=== PATIENT | male | born 1965 | race Caucasian/White ===

== ENCOUNTER 2019-10-21 08:46 | Inpatient (IN) ==
[2019-10-21] MEDS ORDERED: Lidocaine -MPF 2% 2 ML VIAL ONE (09:18)
[2019-10-21] MEDS ORDERED: *HR* Rocuronium Bromide 50 MG/5 ML VIAL ONE ×7 (09:18→14:19)
[2019-10-21] MEDS ORDERED: *HR* PHENYLEPHRINE 1,000 MCG/10 ML SYRINGE IVP ONE (09:18)
[2019-10-21] MEDS ORDERED: Lidocaine HCL 4 ML Topical Solution (Laryng-O-Jet Kit Sterile Pak) TP ONE (09:18)
[2019-10-21] MEDS ORDERED: Dexamethasone 4 MG/ML VIAL ONE (09:18)
[2019-10-21] MEDS ORDERED: Ondansetron 4 MG/2 ML VIAL ONE (09:18)
[2019-10-21] MEDS ORDERED: *HR* Propofol 200 MG/20 ML VIAL IVP ONE ×2 (09:19→13:27)
[2019-10-21] MEDS ORDERED: *HR* FentaNYL (PF) 100 MCG/2 ML VIAL ONE ×3 (09:21→11:06)
[2019-10-21] MEDS ORDERED: *HR* Midazolam HCl 2 MG/2 ML VIAL ONE (09:22)
[2019-10-21] MEDS ORDERED: Albuterol 2.5 MG/3 ML NEBULIZER IH PRN (09:26)
[2019-10-21] MEDS ORDERED: CeFAZolin Syr 2,000MG/20 ML 2,000 MG/20 ML SYRINGE IVPB ONE (09:26)
[2019-10-21] MEDS ORDERED: Heparin 1,000 UNITS/500 mL 1,000 ML ONE (09:26)
[2019-10-21] MEDS ORDERED: Ringers Solution, Lactated 1,000 ML IVC SCH (09:30)
[2019-10-21] MEDS ORDERED: Famotidine 20 MG/2 ML VIAL IVP ONE ×2 (09:39→09:41)
[2019-10-21] MEDS ORDERED: Acetaminophen IV 1,000 MG/100 ML INFUS..BTL IVPB ONE (09:39)
[2019-10-21] MEDS ORDERED: *HR* Promethazine 25 MG/ML VIAL IVP PRN (09:41)
[2019-10-21] MEDS ORDERED: *HR* Labetalol 20 MG/4 ML SYRINGE IVP PRN (09:41)
[2019-10-21] MEDS ORDERED: Ondansetron 4 MG/2 ML VIAL IVP ONE (09:41)
[2019-10-21] MEDS ORDERED: *HR* FentaNYL (PF) 100 MCG/2 ML VIAL IVP PRN (09:41)
[2019-10-21 09:50] LABS: INR 1.1; Prothrombin Time 12.2 Seconds (9.4-12.1)
[2019-10-21] MEDS ORDERED: cefOXitin 1,000 MG, Sodium Chloride IRRigation 1,000 ML IR ONE (10:30)
[2019-10-21] MEDS ORDERED: *HR* HYDROMORPHONE 2 MG/ML VIAL ONE (11:36)
[2019-10-21] MEDS ORDERED: Tranexamic Acid 1,000 MG/10 ML VIAL ONE (13:16)
[2019-10-21] MEDS ORDERED: Albumin Human 5% 25.0 GM/500 ML VIAL ONE (13:51)
[2019-10-21 14:25] LABS: ABG Base Excess -4 mEq/L (-2 to 3); ABG Chloride 105 mEq/L (98-107); ABG Glucose 144 mg/dL (60-95); ABG HCO3 24 mEq/L (21-27); ABG Ionized Calcium 1.18 mmol/L (1.15-1.35); ABG Oxygen Saturation 99 % (95-98); ABG PCO2 50 mmHg (35-45); ABG PH 7.28 pH Units (7.32-7.45); ABG PO2 132 mmHg (85-104); ABG TCO2 25 mEq/L (20-26)
[2019-10-21] MEDS ORDERED: Naloxone 0.4 MG/ML INJ IVP PRN (16:15)
[2019-10-21] MEDS: levETIRAcetam 1,000 MG in 0.9 % Sodium Chloride 100 ML IVPB SCH (17:20)
[2019-10-21] MEDS: 0.9 % Sodium Chloride 1,000 ML IVC SCH (17:24)
[2019-10-21] MEDS: Morphine PCA 30 MG/ 30 ML 30 ML PCA.VIAL IVC SCH (17:35)
[2019-10-21] MEDS: Ipratropium/Albuterol Neb 3 ML IH SCH ×3 (18:25→23:31)
[2019-10-21] MEDS: *HR* Heparin 5,000 UNIT/ML VIAL SQ SCH (22:11)
[2019-10-22] MEDS: 0.9 % Sodium Chloride 1,000 ML IVC SCH ×3 (00:51→16:24)
[2019-10-22] MEDS: Ipratropium/Albuterol Neb 3 ML IH SCH ×6 (03:15→23:39)
[2019-10-22] MEDS: levETIRAcetam 1,000 MG in 0.9 % Sodium Chloride 100 ML IVPB SCH ×2 (03:49→16:21)
[2019-10-22 04:02] LABS: Hematocrit 35.3 % (37.5-50.1); Hemoglobin 11.2 g/dL (12.9-16.9); Immature Platelets 4.1 % (1.1-6.1); Mean Corpuscular HGB Conc 31.7 g/dL (31.6-35.5); Mean Corpuscular Hemoglobin 28.1 pg (28.0-33.3); Mean Corpuscular Volume 88.7 fL (83.0-100.0); Mean Platelet Volume 9.7 fL (9.4-12.4); Red Blood Count 3.98 M/mcL (4.19-5.50); White Blood Count 11.9 K/mcL (4.3-11.1)
[2019-10-22 04:08] LABS: % Iron Saturation 21 % (20-55); BUN/Creatinine Ratio 21 (6-26); Blood Urea Nitrogen 28 mg/dL (6-20); Calcium 8.1 mg/dL (8.6-10.3); Carbon Dioxide 22 mEq/L (23-29); Chloride 109 mEq/L (98-107); Glucose 139 mg/dL (70-105); Iron 64 mcg/dL (65-175); Magnesium 1.9 mg/dL (1.6-2.6); Osmolality,Calculated 296 (280-300); Potassium 5.2 mEq/L (3.5-5.1); Sodium 139 mEq/L (136-145); Transferrin 220 mg/dL (203-362); eGFR For African Americans > 60 (> 60); eGFR For Non-African Americans 54 (> 60)
[2019-10-22] MEDS: *HR* Heparin 5,000 UNIT/ML VIAL SQ SCH ×3 (05:57→22:03)
[2019-10-22] MEDS: Morphine PCA 30 MG/ 30 ML 30 ML PCA.VIAL IVC SCH ×2 (07:02→15:56)
[2019-10-22] MEDS: Pantoprazole 40 MG VIAL IVP SCH (08:21)
[2019-10-23] MEDS: 0.9 % Sodium Chloride 1,000 ML IVC SCH ×3 (00:27→16:10)
[2019-10-23] MEDS: Morphine PCA 30 MG/ 30 ML 30 ML PCA.VIAL IVC SCH ×2 (03:03→13:44)
[2019-10-23 03:39] LABS: Red Blood Count 3.25 M/mcL (4.19-5.50)
[2019-10-23 03:41] LABS: Hematocrit 30.4 % (37.5-50.1); Hemoglobin 9.2 g/dL (12.9-16.9); Mean Corpuscular HGB Conc 30.3 g/dL (31.6-35.5); Mean Corpuscular Hemoglobin 28.3 pg (28.0-33.3); Mean Corpuscular Volume 93.5 fL (83.0-100.0); Mean Platelet Volume 10.9 fL (9.4-12.4); Red Cell Distribution Width 16.5 % (11.5-14.5); White Blood Count 14.8 K/mcL (4.3-11.1)
[2019-10-23] MEDS: levETIRAcetam 1,000 MG in 0.9 % Sodium Chloride 100 ML IVPB SCH ×2 (03:52→16:44)
[2019-10-23 04:01] LABS: Calcium 8.2 mg/dL (8.6-10.3); Magnesium 2.3 mg/dL (1.6-2.6); Phosphorous 3.3 mg/dL (2.7-4.5)
[2019-10-23] MEDS: Ipratropium/Albuterol Neb 3 ML IH SCH ×6 (04:06→23:38)
[2019-10-23] MEDS: *HR* Heparin 5,000 UNIT/ML VIAL SQ SCH ×3 (05:54→20:44)
[2019-10-23] MEDS: Pantoprazole 40 MG VIAL IVP SCH (08:09)
[2019-10-24] MEDS: Morphine PCA 30 MG/ 30 ML 30 ML PCA.VIAL IVC SCH ×3 (00:12→20:27)
[2019-10-24] MEDS: 0.9 % Sodium Chloride 1,000 ML IVC SCH ×4 (00:23→22:19)
[2019-10-24] MEDS: levETIRAcetam 1,000 MG in 0.9 % Sodium Chloride 100 ML IVPB SCH ×2 (03:45→16:04)
[2019-10-24] MEDS: Ipratropium/Albuterol Neb 3 ML IH SCH ×6 (03:50→23:58)
[2019-10-24 04:01] LABS: Hematocrit 26.1 % (37.5-50.1); Hemoglobin 8.3 g/dL (12.9-16.9); Immature Platelets 3.5 % (1.1-6.1); Mean Corpuscular HGB Conc 31.8 g/dL (31.6-35.5); Mean Corpuscular Hemoglobin 28.5 pg (28.0-33.3); Mean Corpuscular Volume 89.7 fL (83.0-100.0); Red Blood Count 2.91 M/mcL (4.19-5.50); Red Cell Distribution Width 16.9 % (11.5-14.5); White Blood Count 10.7 K/mcL (4.3-11.1)
[2019-10-24] MEDS: *HR* Heparin 5,000 UNIT/ML VIAL SQ SCH ×3 (04:14→22:20)
[2019-10-24 04:20] LABS: BUN/Creatinine Ratio 29 (6-26); Blood Urea Nitrogen 35 mg/dL (6-20); Carbon Dioxide 21 mEq/L (23-29); Chloride 114 mEq/L (98-107); Glucose 121 mg/dL (70-105); Magnesium 2.4 mg/dL (1.6-2.6); Osmolality,Calculated 303 (280-300); Phosphorous 1.9 mg/dL (2.7-4.5); Potassium 4.2 mEq/L (3.5-5.1); Sodium 142 mEq/L (136-145); eGFR For African Americans > 60 (> 60); eGFR For Non-African Americans > 60 (> 60)
[2019-10-24] MEDS: Pantoprazole 40 MG VIAL IVP SCH (08:36)
[2019-10-24] MEDS ORDERED: Furosemide 40 MG/4 ML VIAL IVP ONE (09:39)
[2019-10-24] MEDS ORDERED: 0.9 % Sodium Chloride 250 ML ONE (10:29)
[2019-10-24] MEDS ORDERED: Furosemide 40 MG/4 ML VIAL ONE (11:21)
[2019-10-25] MEDS: Ipratropium/Albuterol Neb 3 ML IH SCH ×6 (03:55→23:38)
[2019-10-25] MEDS: levETIRAcetam 1,000 MG in 0.9 % Sodium Chloride 100 ML IVPB SCH ×2 (05:10→16:55)
[2019-10-25] MEDS: *HR* Heparin 5,000 UNIT/ML VIAL SQ SCH ×3 (05:10→21:13)
[2019-10-25 05:49] LABS: Red Cell Distribution Width 16.9 % (11.5-14.5)
[2019-10-25 05:50] LABS: Hematocrit 26.6 % (37.5-50.1); Hemoglobin 8.7 g/dL (12.9-16.9); Immature Platelets 3.6 % (1.1-6.1); Mean Corpuscular HGB Conc 32.7 g/dL (31.6-35.5); Mean Corpuscular Hemoglobin 29.1 pg (28.0-33.3); Mean Platelet Volume 10.3 fL (9.4-12.4); Red Blood Count 2.99 M/mcL (4.19-5.50); White Blood Count 8.4 K/mcL (4.3-11.1)
[2019-10-25] MEDS: Morphine PCA 30 MG/ 30 ML 30 ML PCA.VIAL IVC SCH ×3 (06:03→22:03)
[2019-10-25 06:13] LABS: BUN/Creatinine Ratio 27 (6-26); Blood Urea Nitrogen 29 mg/dL (6-20); Calcium 8.4 mg/dL (8.6-10.3); Carbon Dioxide 23 mEq/L (23-29); Chloride 113 mEq/L (98-107); Glucose 123 mg/dL (70-105); Magnesium 2.4 mg/dL (1.6-2.6); Osmolality,Calculated 311 (280-300); Phosphorous 2.2 mg/dL (2.7-4.5); Potassium 3.9 mEq/L (3.5-5.1); Sodium 147 mEq/L (136-145); eGFR For African Americans > 60 (> 60); eGFR For Non-African Americans > 60 (> 60)
[2019-10-25] MEDS: 0.9 % Sodium Chloride 1,000 ML IVC SCH (07:53)
[2019-10-25] MEDS: Pantoprazole 40 MG VIAL IVP SCH (07:53)
[2019-10-25] MEDS ORDERED: 0.9 % Sodium Chloride 1,000 ML IVC SCH (08:27)
[2019-10-25] MEDS: Docusate Oral Soln 100 MG/10 ML UDC GTUBE SCH ×2 (09:24→21:13)
[2019-10-25] MEDS: Acetylcysteine 10% 2 ML INHSOL IH SCH ×4 (11:36→23:39)
[2019-10-25] MEDS ORDERED: Amiodarone Premix 150 MG/100 ML BAG IVPB ONE (23:50)
[2019-10-26] MEDS ORDERED: Amiodarone Premix 360 MG/200 ML BAG IVC ONE
[2019-10-26] MEDS: levETIRAcetam 1,000 MG in 0.9 % Sodium Chloride 100 ML IVPB SCH ×2 (04:00→15:42)
[2019-10-26] MEDS: Ipratropium/Albuterol Neb 3 ML IH SCH ×6 (04:40→23:37)
[2019-10-26] MEDS: Acetylcysteine 10% 2 ML INHSOL IH SCH ×6 (04:41→23:37)
[2019-10-26 04:50] LABS: Hematocrit 27.6 % (37.5-50.1); Hemoglobin 8.5 g/dL (12.9-16.9); Immature Platelets 3.3 % (1.1-6.1); Mean Corpuscular HGB Conc 30.8 g/dL (31.6-35.5); Mean Corpuscular Hemoglobin 28.8 pg (28.0-33.3); Mean Corpuscular Volume 93.6 fL (83.0-100.0); Mean Platelet Volume 10.9 fL (9.4-12.4); Red Blood Count 2.95 M/mcL (4.19-5.50); Red Cell Distribution Width 16.8 % (11.5-14.5); White Blood Count 8.5 K/mcL (4.3-11.1)
[2019-10-26 05:10] LABS: BUN/Creatinine Ratio 26 (6-26); Blood Urea Nitrogen 28 mg/dL (6-20); Calcium 8.5 mg/dL (8.6-10.3); Carbon Dioxide 22 mEq/L (23-29); Chloride 115 mEq/L (98-107); Glucose 127 mg/dL (70-105); Magnesium 2.5 mg/dL (1.6-2.6); Osmolality,Calculated 309 (280-300); Phosphorous 2.6 mg/dL (2.7-4.5); Sodium 146 mEq/L (136-145); eGFR For African Americans > 60 (> 60); eGFR For Non-African Americans > 60 (> 60)
[2019-10-26] MEDS: *HR* Heparin 5,000 UNIT/ML VIAL SQ SCH ×3 (06:11→21:45)
[2019-10-26] MEDS: Amiodarone Premix 360 MG/200 ML BAG IVC SCH ×2 (06:11→18:16)
[2019-10-26] MEDS: Morphine PCA 30 MG/ 30 ML 30 ML PCA.VIAL IVC SCH (08:30)
[2019-10-26] MEDS: Docusate Oral Soln 100 MG/10 ML UDC GTUBE SCH ×2 (09:42→21:45)
[2019-10-26] MEDS: D5% in Water 500 ML IVC SCH (09:43)
[2019-10-26] MEDS: Pantoprazole 40 MG VIAL IVP SCH (09:43)
[2019-10-26] MEDS: Morphine PCA 30 MG/ 30 ML 30 ML PCA.VIAL IVC PRN (22:28)
[2019-10-27 03:35] LABS: Mean Corpuscular Hemoglobin 28.3 pg (28.0-33.3)
[2019-10-27 03:37] LABS: Hematocrit 27.3 % (37.5-50.1); Hemoglobin 8.7 g/dL (12.9-16.9); Immature Platelets 5.2 % (1.1-6.1); Mean Corpuscular HGB Conc 31.9 g/dL (31.6-35.5); Mean Corpuscular Volume 88.9 fL (83.0-100.0); Mean Platelet Volume 11.1 fL (9.4-12.4); Red Blood Count 3.07 M/mcL (4.19-5.50); White Blood Count 8.5 K/mcL (4.3-11.1)
[2019-10-27] MEDS: Ipratropium/Albuterol Neb 3 ML IH SCH ×5 (03:48→20:06)
[2019-10-27] MEDS: Acetylcysteine 10% 2 ML INHSOL IH SCH ×5 (03:48→20:06)
[2019-10-27 03:57] LABS: BUN/Creatinine Ratio 25 (6-26); Blood Urea Nitrogen 27 mg/dL (6-20); Calcium 8.4 mg/dL (8.6-10.3); Carbon Dioxide 23 mEq/L (23-29); Chloride 115 mEq/L (98-107); Glucose 133 mg/dL (70-105); Magnesium 2.4 mg/dL (1.6-2.6); Osmolality,Calculated 311 (280-300); Phosphorous 3.4 mg/dL (2.7-4.5); Potassium 3.7 mEq/L (3.5-5.1); Sodium 147 mEq/L (136-145); eGFR For African Americans > 60 (> 60); eGFR For Non-African Americans > 60 (> 60)
[2019-10-27] MEDS: levETIRAcetam 1,000 MG in 0.9 % Sodium Chloride 100 ML IVPB SCH ×2 (05:00→15:57)
[2019-10-27] MEDS: *HR* Heparin 5,000 UNIT/ML VIAL SQ SCH ×3 (05:00→20:57)
[2019-10-27] MEDS: D5% in Water 500 ML IVC SCH ×4 (05:06→17:55)
[2019-10-27] MEDS: Amiodarone Premix 360 MG/200 ML BAG IVC SCH ×2 (06:15→17:55)
[2019-10-27] MEDS: Docusate Oral Soln 100 MG/10 ML UDC GTUBE SCH ×2 (08:43→20:57)
[2019-10-27] MEDS: Pantoprazole 40 MG VIAL IVP SCH (08:43)
[2019-10-27] MEDS: Morphine PCA 30 MG/ 30 ML 30 ML PCA.VIAL IVC PRN (11:32)
[2019-10-28] MEDS: Ipratropium/Albuterol Neb 3 ML IH SCH ×6 (00:01→20:18)
[2019-10-28] MEDS: Acetylcysteine 10% 2 ML INHSOL IH SCH ×3 (00:01→07:28)
[2019-10-28] MEDS: Morphine PCA 30 MG/ 30 ML 30 ML PCA.VIAL IVC PRN ×2 (00:12→09:44)
[2019-10-28 04:45] LABS: Mean Corpuscular Volume 92.1 fL (83.0-100.0)
[2019-10-28 04:47] LABS: Hematocrit 28.1 % (37.5-50.1); Hemoglobin 8.5 g/dL (12.9-16.9); Immature Platelets 5.4 % (1.1-6.1); Mean Corpuscular HGB Conc 30.2 g/dL (31.6-35.5); Mean Corpuscular Hemoglobin 27.9 pg (28.0-33.3); Red Blood Count 3.05 M/mcL (4.19-5.50); White Blood Count 7.5 K/mcL (4.3-11.1)
[2019-10-28] MEDS: levETIRAcetam 1,000 MG in 0.9 % Sodium Chloride 100 ML IVPB SCH ×2 (05:22→16:56)
[2019-10-28] MEDS: *HR* Heparin 5,000 UNIT/ML VIAL SQ SCH ×3 (05:22→21:15)
[2019-10-28 05:24] LABS: BUN/Creatinine Ratio 28 (6-26); Blood Urea Nitrogen 31 mg/dL (6-20); Calcium 8.4 mg/dL (8.6-10.3); Carbon Dioxide 26 mEq/L (23-29); Chloride 109 mEq/L (98-107); Glucose 139 mg/dL (70-105); Magnesium 2.7 mg/dL (1.6-2.6); Osmolality,Calculated 309 (280-300); Phosphorous 3.9 mg/dL (2.7-4.5); Potassium 3.9 mEq/L (3.5-5.1); Sodium 145 mEq/L (136-145); eGFR For African Americans > 60 (> 60); eGFR For Non-African Americans > 60 (> 60)
[2019-10-28] MEDS: D5% in Water 500 ML IVC SCH ×2 (05:27→16:55)
[2019-10-28] MEDS: Amiodarone Premix 360 MG/200 ML BAG IVC SCH (07:48)
[2019-10-28] MEDS: Pantoprazole 40 MG VIAL IVP SCH (08:26)
[2019-10-28] MEDS ORDERED: *HR* OxyCODONE Oral Soln 5 MG/5 ML UD.LIQ GTUBE PRN (10:17)
[2019-10-28] MEDS: Docusate Oral Soln 100 MG/10 ML UDC GTUBE SCH ×2 (11:25→21:14)
[2019-10-28] MEDS ORDERED: Naloxone 0.4 MG/ML INJ IVP PRN (15:13)
[2019-10-28] MEDS: *HR* OxyCODONE Oral Soln 5 MG/5 ML UD.LIQ GTUBE PRN (17:51)
[2019-10-28] MEDS ORDERED: *HR* HYDROmorphone 2 MG/ML SYRINGE IVP ONE (22:56)
[2019-10-28 23:38] LABS: Hematocrit 28.3 % (37.5-50.1); Hemoglobin 9.1 g/dL (12.9-16.9); Immature Platelets 7.6 % (1.1-6.1); Mean Corpuscular HGB Conc 32.2 g/dL (31.6-35.5); Mean Corpuscular Hemoglobin 28.7 pg (28.0-33.3); Mean Corpuscular Volume 89.3 fL (83.0-100.0); Mean Platelet Volume 11.7 fL (9.4-12.4); Red Blood Count 3.17 M/mcL (4.19-5.50); Red Cell Distribution Width 16.8 % (11.5-14.5); White Blood Count 8.8 K/mcL (4.3-11.1)
[2019-10-28 23:54] LABS: BUN/Creatinine Ratio 26 (6-26); Blood Urea Nitrogen 31 mg/dL (6-20); Calcium 8.4 mg/dL (8.6-10.3); Carbon Dioxide 25 mEq/L (23-29); Chloride 108 mEq/L (98-107); Glucose 120 mg/dL (70-105); Osmolality,Calculated 300 (280-300); Potassium 4.1 mEq/L (3.5-5.1); Sodium 141 mEq/L (136-145); eGFR For African Americans > 60 (> 60); eGFR For Non-African Americans > 60 (> 60)
[2019-10-29] MEDS: Ipratropium/Albuterol Neb 3 ML IH SCH ×7 (00:20→23:25)
[2019-10-29] MEDS: *HR* OxyCODONE Oral Soln 5 MG/5 ML UD.LIQ GTUBE PRN ×3 (00:26→20:14)
[2019-10-29] MEDS: D5% in Water 500 ML IVC SCH ×2 (02:45→12:14)
[2019-10-29] MEDS: *HR* Heparin 5,000 UNIT/ML VIAL SQ SCH ×3 (05:25→19:42)
[2019-10-29] MEDS: levETIRAcetam 1,000 MG in 0.9 % Sodium Chloride 100 ML IVPB SCH ×2 (05:26→15:41)
[2019-10-29] MEDS: *HR* Amiodarone 200 MG TABLET GTUBE SCH (07:50)
[2019-10-29] MEDS: Docusate Oral Soln 100 MG/10 ML UDC GTUBE SCH ×2 (07:51→19:41)
[2019-10-29] MEDS: Pantoprazole 40 MG VIAL IVP SCH (07:51)
[2019-10-29] MEDS ORDERED: *HR* Amiodarone 200 MG TABLET GTUBE SCH (09:00)
[2019-10-29] MEDS ORDERED: Perflutren Lipid Microsphere 1.3 ML in 0.9 % Sodium Chloride 8.7 ML IVP ONE (10:50)
[2019-10-29] MEDS ORDERED: Furosemide 20 MG/2 ML VIAL IVP ONE (11:47)
[2019-10-29] MEDS ORDERED: Vancomycin 1,750 MG in 0.9 % Sodium Chloride 250 ML IVPB SCH (17:00)
[2019-10-29] MEDS: Piperacillin/Tazobactam 3.375 GM in 0.9 % Sodium Chloride Mini Bag 100 ML IVPB SCH ×2 (18:02→23:10)
[2019-10-30] MEDS: levETIRAcetam 1,000 MG in 0.9 % Sodium Chloride 100 ML IVPB SCH ×2 (03:43→17:42)
[2019-10-30] MEDS: Ipratropium/Albuterol Neb 3 ML IH SCH ×6 (04:25→23:14)
[2019-10-30 04:27] LABS: Hematocrit 25.5 % (37.5-50.1); Hemoglobin 7.9 g/dL (12.9-16.9); Immature Platelets 7.3 % (1.1-6.1); Mean Corpuscular Hemoglobin 27.8 pg (28.0-33.3); Mean Corpuscular Volume 89.8 fL (83.0-100.0); Mean Platelet Volume 11.7 fL (9.4-12.4); Red Blood Count 2.84 M/mcL (4.19-5.50); Red Cell Distribution Width 17.1 % (11.5-14.5); White Blood Count 7.9 K/mcL (4.3-11.1)
[2019-10-30 04:29] LABS: BUN/Creatinine Ratio 22 (6-26); Blood Urea Nitrogen 27 mg/dL (6-20); Calcium 7.9 mg/dL (8.6-10.3); Carbon Dioxide 25 mEq/L (23-29); Chloride 106 mEq/L (98-107); Glucose 138 mg/dL (70-105); Osmolality,Calculated 299 (280-300); Potassium 4.3 mEq/L (3.5-5.1); Sodium 141 mEq/L (136-145); eGFR For African Americans > 60 (> 60); eGFR For Non-African Americans > 60 (> 60)
[2019-10-30] MEDS: *HR* Heparin 5,000 UNIT/ML VIAL SQ SCH ×3 (05:28→20:15)
[2019-10-30] MEDS: D5% in Water 500 ML IVC SCH ×2 (07:49→12:30)
[2019-10-30] MEDS ORDERED: Aminoglycoside Consult 1 EACH MC ONE (08:18)
[2019-10-30] MEDS: *HR* Amiodarone 200 MG TABLET GTUBE SCH (08:31)
[2019-10-30] MEDS: Metoprolol XL (24 HR) Succ 50 MG TAB.ER.24H PO SCH (08:31)
[2019-10-30] MEDS: Pantoprazole 40 MG VIAL IVP SCH (08:31)
[2019-10-30] MEDS: Piperacillin/Tazobactam 3.375 GM in 0.9 % Sodium Chloride Mini Bag 100 ML IVPB SCH ×2 (08:31→16:13)
[2019-10-30] MEDS: aMILoride 5 MG TABLET PO SCH (08:31)
[2019-10-30] MEDS: Docusate Oral Soln 100 MG/10 ML UDC GTUBE SCH ×2 (08:31→22:15)
[2019-10-30] MEDS ORDERED: Furosemide 20 MG TABLET PO ONE (08:45)
[2019-10-30] MEDS: *HR* OxyCODONE Oral Soln 5 MG/5 ML UD.LIQ GTUBE PRN ×3 (12:45→22:15)
[2019-10-31] MEDS: Piperacillin/Tazobactam 3.375 GM in 0.9 % Sodium Chloride Mini Bag 100 ML IVPB SCH ×4 (00:12→23:43)
[2019-10-31] MEDS: Ipratropium/Albuterol Neb 3 ML IH SCH ×6 (03:48→23:40)
[2019-10-31] MEDS: *HR* OxyCODONE Oral Soln 5 MG/5 ML UD.LIQ GTUBE PRN ×4 (04:29→21:44)
[2019-10-31] MEDS: levETIRAcetam 1,000 MG in 0.9 % Sodium Chloride 100 ML IVPB SCH ×2 (04:29→16:01)
[2019-10-31] MEDS: *HR* Heparin 5,000 UNIT/ML VIAL SQ SCH (05:00)
[2019-10-31 05:13] LABS: Hematocrit 26.8 % (37.5-50.1); Hemoglobin 8.4 g/dL (12.9-16.9); Mean Corpuscular HGB Conc 31.3 g/dL (31.6-35.5); Mean Corpuscular Hemoglobin 28.1 pg (28.0-33.3); Mean Corpuscular Volume 89.6 fL (83.0-100.0); Mean Platelet Volume 10.7 fL (9.4-12.4); Red Blood Count 2.99 M/mcL (4.19-5.50); Red Cell Distribution Width 16.8 % (11.5-14.5); White Blood Count 9.8 K/mcL (4.3-11.1)
[2019-10-31 05:30] LABS: BUN/Creatinine Ratio 19 (6-26); Blood Urea Nitrogen 23 mg/dL (6-20); Calcium 8.2 mg/dL (8.6-10.3); Carbon Dioxide 22 mEq/L (23-29); Chloride 107 mEq/L (98-107); Glucose 121 mg/dL (70-105); Osmolality,Calculated 287 (280-300); Potassium 4.5 mEq/L (3.5-5.1); Sodium 136 mEq/L (136-145); eGFR For African Americans > 60 (> 60); eGFR For Non-African Americans > 60 (> 60)
[2019-10-31] MEDS: Pantoprazole 40 MG VIAL IVP SCH (08:04)
[2019-10-31] MEDS: Docusate Oral Soln 100 MG/10 ML UDC GTUBE SCH ×2 (08:04→21:44)
[2019-10-31] MEDS: Metoprolol XL (24 HR) Succ 50 MG TAB.ER.24H PO SCH (08:05)
[2019-10-31] MEDS: *HR* Amiodarone 200 MG TABLET GTUBE SCH (08:05)
[2019-10-31] MEDS: aMILoride 5 MG TABLET PO SCH (08:05)
[2019-10-31] MEDS: D5% in Water 500 ML IVC SCH (16:04)
[2019-10-31] MEDS: GuaiFENesin Liq 200 MG/10 ML UDC GTUBE SCH ×2 (17:33→23:43)
[2019-10-31 17:38] LABS: CK-BB (CK isoenzymes) 0 % (0-0); CK-MB (CK isoenzymes) 0 % (0-4); CK-MM (CK-isoenzymes) 100 % (96-100)
[2019-11-01] MEDS: *HR* OxyCODONE Oral Soln 5 MG/5 ML UD.LIQ GTUBE PRN ×5 (01:54→20:21)
[2019-11-01] MEDS: Ipratropium/Albuterol Neb 3 ML IH SCH ×6 (03:54→23:37)
[2019-11-01] MEDS: GuaiFENesin Liq 200 MG/10 ML UDC GTUBE SCH ×4 (04:35→23:56)
[2019-11-01] MEDS: levETIRAcetam 1,000 MG in 0.9 % Sodium Chloride 100 ML IVPB SCH (04:35)
[2019-11-01 05:10] LABS: Hematocrit 27.9 % (37.5-50.1); Hemoglobin 8.8 g/dL (12.9-16.9); Immature Platelets 8.6 % (1.1-6.1); Mean Corpuscular HGB Conc 31.5 g/dL (31.6-35.5); Mean Corpuscular Hemoglobin 28.2 pg (28.0-33.3); Mean Corpuscular Volume 89.4 fL (83.0-100.0); Mean Platelet Volume 11.3 fL (9.4-12.4); Red Blood Count 3.12 M/mcL (4.19-5.50); Red Cell Distribution Width 16.4 % (11.5-14.5); White Blood Count 10.1 K/mcL (4.3-11.1)
[2019-11-01 05:23] LABS: BUN/Creatinine Ratio 19 (6-26); Blood Urea Nitrogen 23 mg/dL (6-20); Calcium 8.5 mg/dL (8.6-10.3); Carbon Dioxide 23 mEq/L (23-29); Chloride 108 mEq/L (98-107); Glucose 138 mg/dL (70-105); Osmolality,Calculated 290 (280-300); Potassium 4.9 mEq/L (3.5-5.1); Sodium 137 mEq/L (136-145); eGFR For African Americans > 60 (> 60); eGFR For Non-African Americans > 60 (> 60)
[2019-11-01] MEDS: Piperacillin/Tazobactam 3.375 GM in 0.9 % Sodium Chloride Mini Bag 100 ML IVPB SCH ×3 (07:41→23:55)
[2019-11-01] MEDS: aMILoride 5 MG TABLET PO SCH (07:52)
[2019-11-01] MEDS: Docusate Oral Soln 100 MG/10 ML UDC GTUBE SCH ×2 (07:52→20:21)
[2019-11-01] MEDS: Metoprolol XL (24 HR) Succ 50 MG TAB.ER.24H PO SCH (07:52)
[2019-11-01] MEDS: *HR* Amiodarone 200 MG TABLET GTUBE SCH (07:52)
[2019-11-01] MEDS: Pantoprazole 40 MG VIAL IVP SCH (07:52)
[2019-11-01 09:52] LABS: CK Total (Ck Isoenzymes) 381 U/L (20-200)
[2019-11-01] MEDS: D5% in Water 500 ML IVC SCH (16:14)
[2019-11-01] MEDS: levETIRAcetam 500 MG/5 ML UDC GTUBE SCH (20:49)
[2019-11-01] MEDS ORDERED: levETIRAcetam 250 MG TABLET PO SCH (21:00)
[2019-11-01] MEDS ORDERED: Famotidine 20 MG TABLET PO SCH (21:00)
[2019-11-01] MEDS: Famotidine 20 MG TABLET GTUBE SCH (23:22)
[2019-11-02] MEDS: *HR* OxyCODONE Oral Soln 5 MG/5 ML UD.LIQ GTUBE PRN ×5 (03:25→22:47)
[2019-11-02] MEDS: Ipratropium/Albuterol Neb 3 ML IH SCH ×6 (03:29→23:51)
[2019-11-02 03:59] LABS: Hematocrit 28.3 % (37.5-50.1)
[2019-11-02 04:01] LABS: Hemoglobin 8.9 g/dL (12.9-16.9); Immature Platelets 8.5 % (1.1-6.1); Mean Corpuscular HGB Conc 31.4 g/dL (31.6-35.5); Mean Corpuscular Hemoglobin 28.3 pg (28.0-33.3); Mean Corpuscular Volume 90.1 fL (83.0-100.0); Red Blood Count 3.14 M/mcL (4.19-5.50); Red Cell Distribution Width 16.6 % (11.5-14.5); White Blood Count 10.2 K/mcL (4.3-11.1)
[2019-11-02 04:17] LABS: BUN/Creatinine Ratio 20 (6-26); Blood Urea Nitrogen 24 mg/dL (6-20); Calcium 8.4 mg/dL (8.6-10.3); Carbon Dioxide 22 mEq/L (23-29); Chloride 107 mEq/L (98-107); Glucose 124 mg/dL (70-105); Osmolality,Calculated 285 (280-300); Sodium 135 mEq/L (136-145); eGFR For African Americans > 60 (> 60); eGFR For Non-African Americans > 60 (> 60)
[2019-11-02] MEDS: GuaiFENesin Liq 200 MG/10 ML UDC GTUBE SCH ×4 (05:04→23:36)
[2019-11-02] MEDS: Piperacillin/Tazobactam 3.375 GM in 0.9 % Sodium Chloride Mini Bag 100 ML IVPB SCH (09:29)
[2019-11-02] MEDS: Docusate Oral Soln 100 MG/10 ML UDC GTUBE SCH ×2 (09:32→20:32)
[2019-11-02] MEDS: Famotidine 20 MG TABLET GTUBE SCH ×2 (09:32→20:32)
[2019-11-02] MEDS: *HR* Amiodarone 200 MG TABLET GTUBE SCH (09:32)
[2019-11-02] MEDS: aMILoride 5 MG TABLET PO SCH (09:32)
[2019-11-02] MEDS: Metoprolol XL (24 HR) Succ 50 MG TAB.ER.24H PO SCH (09:32)
[2019-11-02] MEDS: levETIRAcetam 500 MG/5 ML UDC GTUBE SCH ×2 (09:33→20:31)
[2019-11-02] MEDS ORDERED: Lidocaine -MPF 2% 5 ML VIAL INFILT ONE (10:20)
[2019-11-02] MEDS ORDERED: Furosemide 20 MG TABLET PO ONE (10:45)
[2019-11-02] MEDS ORDERED: Furosemide 20 MG TABLET PO SCH (10:45)
[2019-11-03] MEDS: *HR* OxyCODONE Oral Soln 5 MG/5 ML UD.LIQ GTUBE PRN ×4 (03:33→23:15)
[2019-11-03] MEDS: Ipratropium/Albuterol Neb 3 ML IH SCH ×5 (03:54→19:55)
[2019-11-03] MEDS: GuaiFENesin Liq 200 MG/10 ML UDC GTUBE SCH ×4 (05:33→23:15)
[2019-11-03] MEDS: aMILoride 5 MG TABLET PO SCH (08:50)
[2019-11-03] MEDS: Docusate Oral Soln 100 MG/10 ML UDC GTUBE SCH ×2 (08:50→21:00)
[2019-11-03] MEDS: Famotidine 20 MG TABLET GTUBE SCH ×2 (08:50→21:00)
[2019-11-03] MEDS: levETIRAcetam 500 MG/5 ML UDC GTUBE SCH ×2 (08:50→21:00)
[2019-11-03] MEDS: *HR* Amiodarone 200 MG TABLET GTUBE SCH (08:50)
[2019-11-03] MEDS: Metoprolol XL (24 HR) Succ 50 MG TAB.ER.24H PO SCH (08:50)
[2019-11-03 09:14] LABS: Red Cell Distribution Width 16.4 % (11.5-14.5)
[2019-11-03 09:15] LABS: Hematocrit 29.5 % (37.5-50.1); Immature Platelets 6.1 % (1.1-6.1); Mean Corpuscular HGB Conc 30.5 g/dL (31.6-35.5); Mean Corpuscular Hemoglobin 28.2 pg (28.0-33.3); Mean Corpuscular Volume 92.5 fL (83.0-100.0); Mean Platelet Volume 11.3 fL (9.4-12.4); Red Blood Count 3.19 M/mcL (4.19-5.50); White Blood Count 9.7 K/mcL (4.3-11.1)
[2019-11-03 09:32] LABS: BUN/Creatinine Ratio 20 (6-26); Blood Urea Nitrogen 28 mg/dL (6-20); Calcium 8.7 mg/dL (8.6-10.3); Carbon Dioxide 25 mEq/L (23-29); Chloride 106 mEq/L (98-107); Glucose 129 mg/dL (70-105); Osmolality,Calculated 289 (280-300); Potassium 5.2 mEq/L (3.5-5.1); Sodium 136 mEq/L (136-145); eGFR For African Americans > 60 (> 60); eGFR For Non-African Americans 54 (> 60)
[2019-11-04] MEDS: Ipratropium/Albuterol Neb 3 ML IH SCH ×7 (00:11→23:15)
[2019-11-04 01:27] LABS: Red Cell Distribution Width 16.4 % (11.5-14.5)
[2019-11-04 01:29] LABS: Hematocrit 29.9 % (37.5-50.1); Hemoglobin 9.1 g/dL (12.9-16.9); Immature Platelets 5.6 % (1.1-6.1); Mean Corpuscular HGB Conc 30.4 g/dL (31.6-35.5); Mean Corpuscular Hemoglobin 28.2 pg (28.0-33.3); Mean Corpuscular Volume 92.6 fL (83.0-100.0); Mean Platelet Volume 11.8 fL (9.4-12.4); Red Blood Count 3.23 M/mcL (4.19-5.50)
[2019-11-04 01:45] LABS: BUN/Creatinine Ratio 23 (6-26); Blood Urea Nitrogen 30 mg/dL (6-20); Calcium 8.7 mg/dL (8.6-10.3); Carbon Dioxide 23 mEq/L (23-29); Chloride 107 mEq/L (98-107); Glucose 118 mg/dL (70-105); Osmolality,Calculated 291 (280-300); Potassium 5.3 mEq/L (3.5-5.1); Sodium 137 mEq/L (136-145); eGFR For African Americans > 60 (> 60); eGFR For Non-African Americans 56 (> 60)
[2019-11-04] MEDS: *HR* OxyCODONE Oral Soln 5 MG/5 ML UD.LIQ GTUBE PRN ×4 (03:35→20:32)
[2019-11-04] MEDS: GuaiFENesin Liq 200 MG/10 ML UDC GTUBE SCH ×4 (05:22→23:45)
[2019-11-04] MEDS: levETIRAcetam 500 MG/5 ML UDC GTUBE SCH ×2 (08:30→20:31)
[2019-11-04] MEDS: Docusate Oral Soln 100 MG/10 ML UDC GTUBE SCH ×2 (08:32→20:31)
[2019-11-04] MEDS: *HR* Amiodarone 200 MG TABLET GTUBE SCH (08:32)
[2019-11-04] MEDS: aMILoride 5 MG TABLET PO SCH (08:33)
[2019-11-04] MEDS: Metoprolol XL (24 HR) Succ 50 MG TAB.ER.24H PO SCH (08:33)
[2019-11-04] MEDS: Famotidine 20 MG TABLET GTUBE SCH ×2 (08:33→20:32)
[2019-11-05] MEDS: Ipratropium/Albuterol Neb 3 ML IH SCH ×5 (03:52→19:55)
[2019-11-05] MEDS: GuaiFENesin Liq 200 MG/10 ML UDC GTUBE SCH ×3 (05:15→17:14)
[2019-11-05] MEDS: *HR* OxyCODONE Oral Soln 5 MG/5 ML UD.LIQ GTUBE PRN ×4 (05:20→22:19)
[2019-11-05 06:04] LABS: Hematocrit 29.2 % (37.5-50.1); Hemoglobin 9.2 g/dL (12.9-16.9); Immature Platelets 5.7 % (1.1-6.1); Mean Corpuscular HGB Conc 31.5 g/dL (31.6-35.5); Mean Corpuscular Hemoglobin 27.6 pg (28.0-33.3); Mean Corpuscular Volume 87.7 fL (83.0-100.0); Mean Platelet Volume 11.3 fL (9.4-12.4); Red Blood Count 3.33 M/mcL (4.19-5.50)
[2019-11-05 06:28] LABS: BUN/Creatinine Ratio 24 (6-26); Blood Urea Nitrogen 31 mg/dL (6-20); Calcium 8.6 mg/dL (8.6-10.3); Carbon Dioxide 21 mEq/L (23-29); Chloride 104 mEq/L (98-107); Glucose 138 mg/dL (70-105); Osmolality,Calculated 291 (280-300); Potassium 5.2 mEq/L (3.5-5.1); Sodium 136 mEq/L (136-145); eGFR For African Americans > 60 (> 60); eGFR For Non-African Americans 58 (> 60)
[2019-11-05] MEDS: Docusate Oral Soln 100 MG/10 ML UDC GTUBE SCH ×2 (09:26→21:55)
[2019-11-05] MEDS: levETIRAcetam 500 MG/5 ML UDC GTUBE SCH ×2 (09:26→21:55)
[2019-11-05] MEDS: Famotidine 20 MG TABLET GTUBE SCH ×2 (09:27→21:55)
[2019-11-05] MEDS: Metoprolol XL (24 HR) Succ 50 MG TAB.ER.24H PO SCH (09:27)
[2019-11-05] MEDS: *HR* Amiodarone 200 MG TABLET GTUBE SCH (09:27)
[2019-11-05] MEDS: aMILoride 5 MG TABLET PO SCH (09:27)
[2019-11-06] MEDS: Ipratropium/Albuterol Neb 3 ML IH SCH ×6 (00:14→21:51)
[2019-11-06] MEDS: GuaiFENesin Liq 200 MG/10 ML UDC GTUBE SCH ×4 (01:10→17:00)
[2019-11-06] MEDS: *HR* OxyCODONE Oral Soln 5 MG/5 ML UD.LIQ GTUBE PRN ×4 (06:22→21:39)
[2019-11-06] MEDS: Famotidine 20 MG TABLET GTUBE SCH (08:36)
[2019-11-06] MEDS: *HR* Amiodarone 200 MG TABLET GTUBE SCH (08:36)
[2019-11-06] MEDS: aMILoride 5 MG TABLET PO SCH (08:36)
[2019-11-06] MEDS: Metoprolol XL (24 HR) Succ 50 MG TAB.ER.24H PO SCH (08:36)
[2019-11-06] MEDS: Docusate Oral Soln 100 MG/10 ML UDC GTUBE SCH ×2 (08:37→21:40)
[2019-11-06] MEDS: levETIRAcetam 500 MG/5 ML UDC GTUBE SCH ×2 (08:37→21:40)
[2019-11-07] MEDS: GuaiFENesin Liq 200 MG/10 ML UDC GTUBE SCH ×4 (01:22→16:44)
[2019-11-07] MEDS: Ipratropium/Albuterol Neb 3 ML IH SCH ×4 (04:05→22:13)
[2019-11-07 05:42] LABS: Hematocrit 28.8 % (37.5-50.1); Red Blood Count 3.31 M/mcL (4.19-5.50)
[2019-11-07 05:44] LABS: Hemoglobin 9.1 g/dL (12.9-16.9); Mean Corpuscular HGB Conc 31.6 g/dL (31.6-35.5); Mean Corpuscular Hemoglobin 27.5 pg (28.0-33.3); Mean Platelet Volume 10.5 fL (9.4-12.4); Red Cell Distribution Width 15.9 % (11.5-14.5); White Blood Count 7.7 K/mcL (4.3-11.1)
[2019-11-07 06:04] LABS: % Iron Saturation 5 % (20-55); Alanine Aminotransferase 22 Units/L (7-52); Albumin 3.5 g/dL (3.5-5.7); Albumin/Globulin Ratio 1.2 (1.1-2.2); Alkaline Phosphatase 94 Units/L (34-104); Aspartate Amino Transferase 16 Units/L (13-39); BUN/Creatinine Ratio 24 (6-26); Bilirubin,Direct 0.1 mg/dL (0.0-0.2); Bilirubin,Indirect 0.2 mg/dL (0.0-1.0); Bilirubin,Total 0.3 mg/dL (0.3-1.0); Blood Urea Nitrogen 30 mg/dL (6-20); Calcium 8.6 mg/dL (8.6-10.3); Carbon Dioxide 22 mEq/L (23-29); Chloride 105 mEq/L (98-107); Globulin 2.9 g/dL (2.4-3.5); Glucose 126 mg/dL (70-105); Iron 19 mcg/dL (65-175); Magnesium 2.4 mg/dL (1.6-2.6); Osmolality,Calculated 288 (280-300); Potassium 4.6 mEq/L (3.5-5.1); Sodium 135 mEq/L (136-145); Total Protein 6.4 g/dL (6.4-8.9); Transferrin 278 mg/dL (203-362); eGFR For African Americans > 60 (> 60); eGFR For Non-African Americans 59 (> 60)
[2019-11-07] MEDS: *HR* OxyCODONE Oral Soln 5 MG/5 ML UD.LIQ GTUBE PRN ×3 (07:41→21:26)
[2019-11-07] MEDS: levETIRAcetam 500 MG/5 ML UDC GTUBE SCH ×2 (07:41→21:27)
[2019-11-07] MEDS: aMILoride 5 MG TABLET PO SCH (07:42)
[2019-11-07] MEDS: Docusate Oral Soln 100 MG/10 ML UDC GTUBE SCH ×2 (07:42→21:27)
[2019-11-07] MEDS: Metoprolol XL (24 HR) Succ 50 MG TAB.ER.24H PO SCH (07:42)
[2019-11-07] MEDS ORDERED: Iron Sucrose Complex 400 MG in 0.9 % Sodium Chloride 250 ML IVPB ONE (08:56)
[2019-11-07] MEDS: Thiamine (B-1) 100 MG in 0.9 % Sodium Chloride 50 ML IVPB SCH (10:02)
[2019-11-07] MEDS: Folic Acid 1 MG in 0.9 % Sodium Chloride 50 ML IVPB SCH (10:12)
[2019-11-08] MEDS: GuaiFENesin Liq 200 MG/10 ML UDC GTUBE SCH ×5 (00:31→23:22)
[2019-11-08] MEDS: Ipratropium/Albuterol Neb 3 ML IH SCH ×4 (04:11→21:34)
[2019-11-08] MEDS: *HR* OxyCODONE Oral Soln 5 MG/5 ML UD.LIQ GTUBE PRN ×2 (05:55→15:08)
[2019-11-08] MEDS ORDERED: Iron Sucrose Complex 400 MG in 0.9 % Sodium Chloride 250 ML IVPB ONE (08:56)
[2019-11-08] MEDS: Docusate Oral Soln 100 MG/10 ML UDC GTUBE SCH ×2 (10:06→23:21)
[2019-11-08] MEDS: levETIRAcetam 500 MG/5 ML UDC GTUBE SCH ×2 (10:09→20:11)
[2019-11-08] MEDS: aMILoride 5 MG TABLET PO SCH (10:10)
[2019-11-08] MEDS: Metoprolol XL (24 HR) Succ 50 MG TAB.ER.24H PO SCH (10:10)
[2019-11-08] MEDS: Thiamine (B-1) 100 MG in 0.9 % Sodium Chloride 50 ML IVPB SCH (12:18)
[2019-11-08] MEDS: Folic Acid 1 MG in 0.9 % Sodium Chloride 50 ML IVPB SCH (12:18)
[2019-11-09] MEDS: Ipratropium/Albuterol Neb 3 ML IH SCH (03:46)
[2019-11-09] MEDS: GuaiFENesin Liq 200 MG/10 ML UDC GTUBE SCH (04:57)
[2019-11-09 07:49] VITALS: BP 124/62
[2019-11-09] MEDS: Docusate Oral Soln 100 MG/10 ML UDC GTUBE SCH (09:34)
[2019-11-09] MEDS: levETIRAcetam 500 MG/5 ML UDC GTUBE SCH (09:35)
[2019-11-09] MEDS: aMILoride 5 MG TABLET PO SCH (09:35)
[2019-11-09] MEDS: Metoprolol XL (24 HR) Succ 50 MG TAB.ER.24H PO SCH (09:35)
== END 2019-11-09 11:45 | DRG 220 ==
LOC: SAMDAY 08:46 → SUATTDRO 15:28 → ICNU 15:28 → 2NNU 10-28 19:14
PROVIDERS: ADMIT Thoracic Surgery (Cardiothoracic Vascular Surgery); ATTEND Internal Medicine

== ENCOUNTER 2019-11-14 17:24 | Observation (INO) ==
[2019-11-14] MEDS ORDERED: *HR* FentaNYL (PF) 100 MCG/2 ML VIAL IVP ONE (19:15)
[2019-11-14] MEDS ORDERED: Isovue-370 500 ML BOTTLE IVP ONE (19:35)
[2019-11-14 20:19] LABS: Immature Granulocytes % 0.4 % (0-4)
[2019-11-14 20:21] LABS: Basophils # 0.1 K/mcL (0.0-0.2); Basophils % 0.9 %; Eosinophils # 0.2 K/mcL (0.0-0.6); Eosinophils % 1.8 %; Hematocrit 35.5 % (37.5-50.1); Hemoglobin 11.1 g/dL (12.9-16.9); Immature Platelets 3.4 % (1.1-6.1); Lymphocytes # 1.5 K/mcL (0.6-4.6); Lymphocytes % 18.6 %; Mean Corpuscular HGB Conc 31.3 g/dL (31.6-35.5); Mean Corpuscular Hemoglobin 27.9 pg (28.0-33.3); Mean Corpuscular Volume 89.2 fL (83.0-100.0); Mean Platelet Volume 11.2 fL (9.4-12.4); Monocytes # 0.6 K/mcL (0.0-1.3); Monocytes % 7.8 %; Neutrophils # 5.8 K/mcL (1.6-8.9); Red Blood Count 3.98 M/mcL (4.19-5.50); Segmented Neutrophils % 70.5 %; White Blood Count 8.2 K/mcL (4.3-11.1)
[2019-11-14 20:22] LABS: Platelet Count 82 K/mcL (140-400)
[2019-11-14 20:48] LABS: Alanine Aminotransferase 19 Units/L (7-52); Albumin/Globulin Ratio 1.3 (1.1-2.2); Alkaline Phosphatase 113 Units/L (34-104); Aspartate Amino Transferase 18 Units/L (13-39); BUN/Creatinine Ratio 23 (6-26); Bilirubin,Total 0.4 mg/dL (0.3-1.0); Blood Urea Nitrogen 26 mg/dL (6-20); Calcium 9.4 mg/dL (8.6-10.3); Carbon Dioxide 23 mEq/L (23-29); Chloride 105 mEq/L (98-107); Glucose 100 mg/dL (70-105); Osmolality,Calculated 291 (280-300); Potassium 4.8 mEq/L (3.5-5.1); Sodium 138 mEq/L (136-145); eGFR For African Americans > 60 (> 60); eGFR For Non-African Americans > 60 (> 60)
[2019-11-14] MEDS ORDERED: Ondansetron ODT 4 MG TAB.RAPDIS SL PRN (23:15)
[2019-11-14] MEDS ORDERED: Naloxone 0.4 MG/ML INJ IVP PRN (23:15)
[2019-11-14] MEDS ORDERED: Ipratropium/Albuterol Neb 3 ML IH PRN (23:31)
[2019-11-15] MEDS ORDERED: Naloxone 0.4 MG/ML INJ IVP PRN (01:06)
[2019-11-15] MEDS ORDERED: Acetaminophen 325 MG TABLET PO PRN (01:06)
[2019-11-15 03:58] LABS: Basophils % 0.7 %; Hematocrit 34.3 % (37.5-50.1); Hemoglobin 10.5 g/dL (12.9-16.9); Immature Granulocytes % 0.3 % (0-4); Mean Corpuscular HGB Conc 30.6 g/dL (31.6-35.5)
[2019-11-15 04:00] LABS: Basophils # 0.1 K/mcL (0.0-0.2); Eosinophils # 0.1 K/mcL (0.0-0.6); Immature Platelets 3.2 % (1.1-6.1); Lymphocytes # 1.3 K/mcL (0.6-4.6); Lymphocytes % 18.1 %; Mean Corpuscular Hemoglobin 28.1 pg (28.0-33.3); Mean Corpuscular Volume 91.7 fL (83.0-100.0); Monocytes # 0.6 K/mcL (0.0-1.3); Monocytes % 8.3 %; Red Blood Count 3.74 M/mcL (4.19-5.50); Red Cell Distribution Width 17.1 % (11.5-14.5); Segmented Neutrophils % 70.6 %; White Blood Count 7.1 K/mcL (4.3-11.1)
[2019-11-15] MEDS ORDERED: Ipratropium/Albuterol Neb 3 ML IH PRN (04:00)
[2019-11-15 04:03] LABS: INR 1.2
[2019-11-15 04:05] LABS: Platelet Count 79 K/mcL (140-400); Platelet Estimate Decreased (Normal)
[2019-11-15 04:21] LABS: BUN/Creatinine Ratio 23 (6-26); Blood Urea Nitrogen 26 mg/dL (6-20); Calcium 9.4 mg/dL (8.6-10.3); Carbon Dioxide 23 mEq/L (23-29); Chloride 105 mEq/L (98-107); Glucose 101 mg/dL (70-105); Magnesium 2.2 mg/dL (1.6-2.6); Osmolality,Calculated 285 (280-300); Phosphorous 3.7 mg/dL (2.7-4.5); Potassium 4.6 mEq/L (3.5-5.1); Sodium 135 mEq/L (136-145); eGFR For African Americans > 60 (> 60); eGFR For Non-African Americans > 60 (> 60)
[2019-11-15] MEDS ORDERED: *HR* Heparin 5,000 UNIT/ML VIAL SQ SCH (06:00)
[2019-11-15] MEDS ORDERED: amLODIPine 5 MG TABLET PO SCH (09:00)
[2019-11-15] MEDS ORDERED: levETIRAcetam 500 MG/5 ML UDC GTUBE SCH (09:00)
[2019-11-15] MEDS ORDERED: Famotidine 20 MG TABLET PO SCH (09:00)
[2019-11-15] MEDS ORDERED: Venlafaxine XR (24 HR) 75 MG CAP.ER.24H PO SCH (09:00)
[2019-11-15] MEDS ORDERED: Tiotropium 18 MCG inhalation IH SCH (10:00)
[2019-11-15] MEDS: 0.9 % Sodium Chloride 1,000 ML IVC SCH ×2 (10:14→10:46)
[2019-11-15 15:19] VITALS: BP 108/67
[2019-11-15] MEDS ORDERED: tiZANidine 4 MG TABLET PO SCH (21:00)
[2019-11-15] MEDS ORDERED: levETIRAcetam 500 MG/5 ML UDC PO SCH (21:00)
== END 2019-11-15 16:16 ==
LOC: EMEROOARM 17:24 → 3ANU 17:24 → SUATTDRO 23:07 → 3ANU 23:29
PROVIDERS: ADMIT Student in an Organized Health Care Education/Training Program; ATTEND Family Medicine